=== PATIENT | female | born 1990 | race Caucasian/White ===

== ENCOUNTER → 2023-03-27 15:51 | Outpatient (BNVA) | payer BC, SELFPAY | PROVIDERS: Visit Provider Psychiatry & Neurology Psychiatry | DX: F11.21 Opioid dependence, in remission (principal); Z79.899 Other long term (current) drug therapy | CPT/HCPCS: 80307 ==

== ENCOUNTER → 2023-05-17 13:52 | Outpatient (BNVA) | payer BC, SELFPAY | PROVIDERS: Visit Provider Psychiatry & Neurology Psychiatry | DX: Z79.899 Other long term (current) drug therapy (principal); F11.21 Opioid dependence, in remission; F15.21 Other stimulant dependence, in remission | CPT/HCPCS: 80307 ==

== ENCOUNTER 2023-05-31 10:07 | Emergency (ER) | payer BC, MEDICAID, SELFPAY ==
[2023-05-31 10:27] VITALS: BP 103/61; PULSE 106; RESP 19; TEMP 37.7; O2SAT 96
--- NOTE | 2023-05-31 12:03 | XR_ITS ---
WS: [id number] Exam: XR chest 1V portable [id number] Date/Time of Exam: 05/31/2023 12:03 PM Reason For Exam: dyspnea/cough Comparison 10/02/2019. There is consolidating pneumonia in the right lower lobe. The left lung is clear. No pneumothorax or pleural effusion. Normal cardiomediastinal silhouette and regional bony elements. XR/XR chest 1V portable [id number] IMPRESSION: 1. Consolidating pneumonia in the right lower lobe.
[2023-05-31 12:20] VITALS: BP 109/76; PULSE 115; RESP 18; O2SAT 95
--- NOTE | 2023-05-31 12:36 | W.ED.SOB ---
HPI - SOB/Dyspnea General: Chief Complaint: Shortness of Breath/Dyspnea Stated Complaint: fever, Pain when breathing, cough, congestion Time Seen by Provider: 05/31/23 11:47 Source: patient Mode of arrival: ambulatory History of Present Illness: HPI Narrative: 33-year-old female presents emergency room with complaint of cough and shortness of breath she was seen several days ago in the walk-in clinic started on Zithromax prednisone taper and albuterol. Despite this she feels like she is continue to get worse she is shortness of breath with activity and increasing productive cough she usually does smoke. No vomiting no diarrhea. She has pain with inspiration on the right side with radiation of pain up into her right shoulder. MD elicited complaint: shortness of breath, cough and pain with inspiration Onset (ago): day(s) Context: recent illness Timing: intermittent Severity: moderate Exacerbating factors: coughing and inspiration Associated symptoms: Reports chest congestion, chest pain, cough, fever(s) and nausea; Deny abdominal pain, palpitations or vomiting Treatment prior to arrival: bronchodilator Review of Systems Const: Reports: fever(s); Denies: chills Card: Reports: chest pain; Denies: palpitations or irregular heart rhythm Resp: Reports: dyspnea, productive cough, wheezing and chest congestion GI: Reports: nausea; Denies: abdominal pain or vomiting : Denies: flank pain, difficulty voiding, dysuria, urinary frequency or urinary urgency Skin/Breast: Denies: rash or pruritus [facility] ED PFSH: Medical History Psychiatric care Physical Exam Const: COMMON NORMALS: no acute distress GENERAL APPEARANCE: cooperative and comfortable ORIENTATION/CONSCIOUSNESS: Yes awake, Yes oriented to person, Yes oriented to place and Yes oriented to time HENMT: COMMON NORMALS: normocephalic, atraumatic and hearing grossly normal bilaterally HEAD & SCALP: normocephalic and atraumatic Cardio: COMMON NORMALS: regular rate, regular rhythm and No murmurs present (Cardio) RATE: regular rate RHYTHM: regular rhythm GI: COMMON NORMALS: Soft to palpation and No hepatosplenomegaly present AUSCULTATION: Yes normoactive bowel sounds PALPATION: Yes Soft to palpation, No Tenderness to palpation present (GI), No Guarding due to palpation present (GI) and Yes No hepatosplenomegaly present Extremity: COMMON NORMALS: normal to inspection, capillary refill normal, no clubbing, cyanosis or edema, no calf tenderness and no pedal edema Neuro: SENSORIUM/ORIENTATION: Yes oriented to person, Yes oriented to place and Yes oriented to time Skin: COMMON NORMALS: no rashes or lesions noted GENERAL SKIN EXAM: no rashes or lesions noted Course Vital Signs: Vital signs: Vital Signs Temperature 99.8 F H 05/31/23 10:27 Pulse Rate 115 H 05/31/23 12:20 Respiratory Rate 18 05/31/23 12:20 Blood Pressure 109/76 05/31/23 12:20 Pulse Oximetry 95 05/31/23 12:20 Oxygen Delivery Me thod Room Air 05/31/23 12:20 MDM - SOB/Dyspnea Medical Decision Making Right lower lobe pneumonia with referred pain to the shoulder. Started on Levaquin. Continue prednisone taper and albuterol DC the azithromycin. Encourage smoking cessation follow-up if not improving or worsens Medical Records I reviewed the patient's medical records. Lab Data I reviewed the patient's lab results. 05/31/23 12:20 Labs/Radiology: Radiology Impressions Chest X-Ray 05/31/23 12:03 IMPRESSION: 1. Consolidating pneumonia in the right lower lobe. Laboratory Results WBC 13.8 10^3/uL (4.0-10.0) H 05/31/23 12:20 RBC 3.17 10^6/uL (4.1-5.3) L 05/31/23 12:20 Hgb 9.3 g/dL (11.5-15.3) L 05/31/23 12:20 Hct 28.7 % (37.0-47.0) L 05/31/23 12:20 MCV 90.5 fl (81-99) 05/31/23 12:20 MCH 29.3 pg (28.0-34.0) 05/31/23 12:20 MCHC 32.4 g/dL (30.0-36.0) 05/31/23 12:20 RDW 12.7 % (12.1-15.1) 05/31/23 12:20 Plt Count 412 10^3/cmm (130-400) H 05/31/23 12:20 MPV 9.6 fL (7.4-10.4) 05/31/23 12:20 Neut % (Auto) 67.9 % 05/31/23 12:20 Lymph % (Auto) 21.7 % 05/31/23 12:20 [place] % (Auto) 9.4 % 05/31/23 12:20 Eos % (Auto) 0.3 % 05/31/23 12:20 Baso % (Auto) 0.3 % 05/31/23 12:20 Neut # (Auto) 9.36 10^3/uL (1.8-7.7) H 05/31/23 12:20 Lymph # (Auto) 3.0 10^3/uL (0.8-4.8) 05/31/23 12:20 [place] # (Auto) 1.3 10^3/uL (0.2-0.9) H 05/31/23 12:20 Eos # (Auto) 0.0 10^3/uL (0.0-0.8) 05/31/23 12:20 Baso # (Auto) 0.0 10^3/uL (0.0-0.1) 05/31/23 12:20 Nucleated RBC % (auto) 0 % 05/31/23 12:20 Nucleated RBCs # 0.0 /100WBC 05/31/23 12:20 Discharge Plan Discharge Patient Disposition: Home Clinical Impression: Community acquired pneumonia Condition: Stable Prescriptions: New levofloxacin 750 mg tablet 750 mg PO DAILY 7 Days Qty: 7 0RF No Action trazodone 50 mg tablet 100 mg PO .HS PRN (Reason: insomnia) Qty: 60 2RF buprenorphine-naloxone 2-0.5 mg tablet, sublingual 1 tab sublingual TID Qty: 90 1RF azithromycin 250 mg tablet See Rx Instructions PO .COMPLEX Qty: 6 0RF Rx Instructions: For 250 mg dose pack: take 500 mg today (day 1), then 250 mg for 4 days (days 2-5) PO albuterol sulfate [Ventolin HFA] 90 mcg/actuation HFA aerosol inhaler 2 puff inhalation QID Qty: 6.7 0RF prednisone 20 mg tablet 40 mg PO DAILY 5 Days Qty: 10 0RF Discharge Orders: Discharge ED (Routine); Ordered 05/31/23 Ordered By: Barrera L Horstman Discharge Diet: Usual diet Discharge Activity: Increase activity as tolerated Patient Instructions: Opioid Safety, Pain Management Activity Restrictions/Additional Instructions: You are seen today for pneumonia recommend that you stop the Zithromax and instead start Levaquin 750 mg once daily for the next 7 days. Continue to use the albuterol and complete the prednisone taper that you were prescribed. Coding Level of Care Code ED Fitting Room Maintenance Mechanic for Sandee Boo
[2023-05-31 12:42] LABS: Basophils % 0.3 %; Eosinophils % 0.3 %; Hematocrit 28.7 % (37.0-47.0); Hemoglobin 9.3 g/dL (11.5-15.3); Lymphocytes % 21.7 %; Mean Corpuscular HGB Conc 32.4 g/dL (30.0-36.0); Mean Corpuscular Hemoglobin 29.3 pg (28.0-34.0); Mean Corpuscular Volume 90.5 fl (81-99); Mean Platelet Volume 9.6 fL (7.4-10.4); Monocytes # 1.3 10^3/uL (0.2-0.9); Monocytes % 9.4 %; Neutrophils # 9.36 10^3/uL (1.8-7.7); Neutrophils % 67.9 %; Nucleated Red Blood Cells % 0 %; Platelet Count 412 10^3/cmm (130-400); Red Blood Count 3.17 10^6/uL (4.1-5.3); Red Cell Distribution Width 12.7 % (12.1-15.1); White Blood Count 13.8 10^3/uL (4.0-10.0)
--- NOTE | 2023-06-06 11:42 | DCPLANNER ---
technical training manager called patient due to no primary care physician - no answer at this time.
== END 2023-05-31 12:51 | disposition home or self-care (01) ==
PROVIDERS: Emergency Provider Family Medicine
DX: J18.9 Pneumonia, unspecified organism (principal)
CPT/HCPCS: 36415; 71045; 85025; 99284

== ENCOUNTER → 2023-07-24 09:22 | Outpatient (BNVA) | payer BC, SELFPAY | PROVIDERS: Visit Provider Psychiatry & Neurology Psychiatry | DX: Z79.899 Other long term (current) drug therapy (principal); F11.21 Opioid dependence, in remission; F15.21 Other stimulant dependence, in remission | CPT/HCPCS: 80307 ==

== ENCOUNTER → 2023-10-17 14:05 | Outpatient (BNVA) | payer BC, SELFPAY | PROVIDERS: Visit Provider Psychiatry & Neurology Psychiatry | DX: Z79.899 Other long term (current) drug therapy (principal); F11.21 Opioid dependence, in remission; F15.21 Other stimulant dependence, in remission; F17.210 Nicotine dependence, cigarettes, uncomplicated; F41.1 Generalized anxiety disorder | CPT/HCPCS: 80307 ==

== ENCOUNTER → 2024-01-08 12:55 | Outpatient (BNVA) | payer BC, SELFPAY | PROVIDERS: Visit Provider Psychiatry & Neurology Psychiatry | DX: F11.21 Opioid dependence, in remission (principal); Z79.899 Other long term (current) drug therapy; F41.1 Generalized anxiety disorder; F15.21 Other stimulant dependence, in remission; F17.210 Nicotine dependence, cigarettes, uncomplicated | CPT/HCPCS: 80307 ==

== ENCOUNTER → 2024-03-25 15:12 | Outpatient (BNVA) | payer BC, SELFPAY | PROVIDERS: Visit Provider Psychiatry & Neurology Psychiatry | DX: F15.21 Other stimulant dependence, in remission (principal); F11.21 Opioid dependence, in remission; Z79.899 Other long term (current) drug therapy; F41.1 Generalized anxiety disorder; F17.210 Nicotine dependence, cigarettes, uncomplicated | CPT/HCPCS: 80307 ==

== ENCOUNTER 2024-04-20 09:28 | Emergency (ER) | payer BC, MEDICAID, SELFPAY ==
[2024-04-20 09:35] VITALS: BP 128/81; PULSE 92; RESP 18; TEMP 36.8; O2SAT 96; BMI 27.3
[2024-04-20 09:42] VITALS: BP 128/81
--- NOTE | 2024-04-20 09:45 | W.ED.DENTAL ---
HPI - Dental/Oral General: Chief complaint: Dental/Oral Stated complaint: tooth pain Time Seen by Provider: 04/20/24 09:33 History of Present Illness: This patient is a 34-year-old presenting with facial swelling and dental pain. She started having some dental pain last night and this morning it woke her up early with increased pain and some swelling. She has 2 teeth on the left lower jaw which she says are bad . She does not have a dentist. She has not taken ibuprofen or Tylenol at home. She is on buprenorphine for history of substance abuse. She denies fevers. She is not having any difficulty swallowing. She has never had a dental abscess in the past. PFS ED PFSH: Medical History Psychiatric care Physical Exam Const: COMMON NORMALS: patient oriented x3 GENERAL APPEARANCE: other (Uncomfortable) HENMT: MOUTH: other (No elevation of the floor of the mouth no submandibular fullness) TEETH & GINGIVA: Yes abnormal tooth and associated gingiva (Left lower molars with deep cavities and some swelling of the gum. No fluc) TEETH & GINGIVA IMAGES: 1. Deep dental caries 2. Deep dental caries Resp: COMMON NORMALS: normal respiratory effort and No use of accessory muscles Cardio: HEART SOUNDS: no murmurs Neuro: COMMON NORMALS: patient oriented x3 Course Vital Signs: Vital signs: Vital Signs Temperature 98.3 F 04/20/24 09:35 Pulse Rate 92 04/20/24 09:35 Respiratory Rate 18 04/20/24 09:35 Blood Pressure 128/81 04/20/24 09:42 Pulse Oximetry 96 04/20/24 09:35 Oxygen Delivery Me thod Room Air 04/20/24 09:35 MDM - Dental/Oral Medical Decision Making Apparent dental abscess. No area of fluctuance that would be amenable to drainage. Patient does have history of substance abuse including opiates. We discussed this in some detail and she is okay with taking a short course of narcotic pain medicine if needed. I gave her 1 [facility] here and a prescription for 4 tablets. She was also given ibuprofen here and a prescription for Naprosyn. She will be put on amoxicillin 875 twice daily for 7 days. She was given some options for follow-up for dental care. No radiology studies performed this visit Discharge Plan Discharge Patient Disposition: Home Clinical Impression: Dental abscess, Toothache Condition: Stable Prescriptions: New Naprosyn 500 mg tablet 500 mg PO BID PRN (Reason: pain) Qty: 10 0RF amoxicillin 875 mg tablet 875 mg PO BID Qty: 14 0RF hydrocodone-acetaminophen 5-325 mg tablet 1 tab PO Q6H PRN (Reason: pain) Qty: 4 0RF No Action buprenorphine-naloxone 8-2 mg tablet, sublingual 1.5 tab sublingual DAILY Qty: 45 2RF trazodone 50 mg tablet 100 mg PO .HS PRN (Reason: insomnia) Qty: 60 2RF Discharge Orders: Discharge ED (Routine); Ordered 04/20/24 Ordered By: Lizette Ratliff Patient Instructions: Opioid Safety, Pain Management Activity Restrictions/Additional Instructions: Follow up with the [facility] for dental care. You can also follow up with the [facility] dental clinic in [place]. 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
[2024-04-20] MEDS: ibuprofen 600 mg Tablet PO (09:51)
[2024-04-20] MEDS: HYDROcodone-acetaminophen 5-325 mg Tablet 1 TAB PO (09:52)
[2024-04-20] MEDS: acetaminophen 325 mg Tablet 650 MG PO (09:52)
== END 2024-04-20 10:03 | disposition home or self-care (01) ==
PROVIDERS: Emergency Provider Emergency Medicine
DX: K04.7 Periapical abscess without sinus (principal)
CPT/HCPCS: 99283

== ENCOUNTER → 2024-06-25 15:26 | Outpatient (BNVA) | payer BC, SELFPAY | PROVIDERS: Visit Provider Psychiatry & Neurology Psychiatry | DX: Z79.899 Other long term (current) drug therapy (principal); F15.21 Other stimulant dependence, in remission; F11.21 Opioid dependence, in remission | CPT/HCPCS: 80307 ==

== ENCOUNTER → 2024-09-24 15:23 | Outpatient (BNVA) | payer BC, SELFPAY | PROVIDERS: Visit Provider Psychiatry & Neurology Psychiatry | DX: F15.21 Other stimulant dependence, in remission (principal); F11.21 Opioid dependence, in remission; Z79.899 Other long term (current) drug therapy | CPT/HCPCS: 80307 ==

== ENCOUNTER → 2024-12-18 15:22 | Outpatient (BNVA) | payer BC, SELFPAY | PROVIDERS: Visit Provider Psychiatry & Neurology Psychiatry | DX: F15.21 Other stimulant dependence, in remission (principal); F11.21 Opioid dependence, in remission; Z79.899 Other long term (current) drug therapy | CPT/HCPCS: 80307 ==

== ENCOUNTER → 2025-03-26 14:59 | Outpatient (BNVA) | payer BC, SELFPAY | PROVIDERS: Visit Provider Psychiatry & Neurology Psychiatry | DX: F41.1 Generalized anxiety disorder (principal); F15.21 Other stimulant dependence, in remission; F11.21 Opioid dependence, in remission; Z79.899 Other long term (current) drug therapy; F17.210 Nicotine dependence, cigarettes, uncomplicated | CPT/HCPCS: 80307 ==

== ENCOUNTER 2025-05-05 20:00 | Emergency (ER) | payer BC, MEDICAID, SELFPAY ==
--- OUTSIDE RECORDS SUMMARY | 2021-11-16 10:22 | XMS_ITS | Continuity of Care Document ---
Author Organization [facility] Address [address] [id number] [address] Phone Care Team Providers Care Cephalometric Analyst Name Role Phone Marta Odell MD Unavailable Unavailable Allergies, Adverse Reactions, Alerts Substance Reaction Status Criticality No Known Allergies Active No Inform ation Medications Medication Instructions Dosage Effective Dates (start - stop) Status Comments triamcinolone acetonide 0.05 % topical ointment apply by topical route 2 times every day a thin layer to the affected area(s) 0.00 - Active 28 mg iron-800 mcg tablet take 1 tablet by oral route every daily for 60 mornings 1 tablet - Active As per patient privacy policy some of the clinical information may not be visible. Problems Condition Type Effective Dates (start - stop) Clini simone Status Comments No Known Problems Procedures Procedure Date PSYTX PT&/FAMILY 30 MINUTES OFFICE/OUTPATIENT VISIT, EST DRUG SCREEN URINALYSIS AUTO W/O SCOPE Patient Left / No Show DRUG SCREEN OFFICE/OUTPATIENT VISIT, EST DRUG SCREEN PSYTX PT&/FAMILY 30 MINUTES OB US < 14 WKS SINGLE FETUS - Global May PSYTX PT&/FAMILY 30 MINUTES CYTOPATH, C/V, THIN LAYER OFFICE/OUTPATIENT VISIT, EST URINALYSIS AUTO W/O SCOPE DRUG SCREEN HEPATITIS C AB TEST No Charge Lab Codes OBSTETRIC PANEL No Charge Lab Codes No Charge Lab Codes No Charge Lab Codes No Charge Lab Codes ROUTINE VENIPUNCTURE No Charge Lab Codes CULT, (U) ROUTINE *SURESWAB CT/NG/TVAG THINPREP TIS PAP AND HPV mRNA E6/E7 REFL EX HPV 16,18/45 HPV GENOTYPES 16,18/45 NO CHARGE PSYTX PT&/FAMILY 30 MINUTES URINE TEST OFFICE/OUTPATIENT VISIT EST OFFICE/OUTPATIENT VISIT EST Finalize Template Workaround OFFICE/OUTPATIENT VISIT, EST (1371) Finalize Template Workaround OFFICE/OUTPATIENT VISIT, EST (1371) Finalize Template Workaround OFFICE/OUTPATIENT VISIT, EST (1371) COMPLETE CBC W/AUTO DIFF WBC COMPREHEN METABOLIC PANEL ROUTINE VENIPUNCTURE CYTOPATH, C/V, THIN LAYER Patient Left / No Show Finalize Template Workaround Patient Left / No Show Finalize Template Workaround Behavioral Health Consult OFFICE/OUTPATIENT VISIT, EST Nurse Care Manger Patient Education Phon e Finalize Template Workaround OFFICE/OUTPATIENT VISIT, EST (1371) OB US LIMITED FETUS(S) - Global 018 NON-STRESS TEST OFFICE/OUTPATIENT VISIT, EST URINALYSIS AUTO W/O SCOPE OB US LIMITED FETUS(S) - Global 018 OFFICE/OUTPATIENT VISIT, EST NON-STRESS TEST URINALYSIS AUTO W/O SCOPE OB US LIMITED FETUS(S) - Global 018 OFFICE/OUTPATIENT VISIT, EST NON-STRESS TEST URINALYSIS AUTO W/O SCOPE URINALYSIS AUTO W/O SCOPE Drug Tests Presumptive Any Number Of Malcom g Classes NON-STRESS TEST OB US FOLLOW-UP PER FETUS - Global OFFICE/OUTPATIENT VISIT, EST STREP GP B CULTURE PSYTX PT&/FAMILY 30 MINUTES URINALYSIS AUTO W/O SCOPE OB US, LIMITED, FETUS(S) NON-STRESS TEST OB US LIMITED FETUS(S) NON-STRESS TEST OFFICE/OUTPATIENT VISIT, EST OB US, LIMITED, FETUS(S) URINALYSIS AUTO W/O SCOPE URINALYSIS AUTO W/O SCOPE OB US LIMITED FETUS(S) - Global 017 NON-STRESS TEST OFFICE/OUTPATIENT VISIT, EST (1371) URINALYSIS AUTO W/O SCOPE NON-STRESS TEST OFFICE/OUTPATIENT VISIT, EST OB US FOLLOW-UP PER FETUS - Global OFFICE/OUTPATIENT VISIT, EST URINALYSIS AUTO W/O SCOPE OFFICE/OUTPATIENT VISIT, EST Duplicate Encounter GLUCOSE TEST COMPLETE CBC W/AUTO DIFF WBC ROUTINE VENIPUNCTURE Behavioral Health Consult URINALYSIS AUTO W/O SCOPE Drug Tests Presumptive Any Number Of Malcom g Classes IMMUNIZATION ADMIN TDAP VACCINE >7 IM IMMUNIZATION ADMIN, EACH ADD FLU VAC NO PRSV 4 JOSE LUIS 3 YRS+ Patient Left / No Show OB US >/= 14 WKS SNGL FETUS OB US >/= 14 WKS, SNGL FETUS PSYTX PT&/FAMILY 30 MINUTES CHYLMD TRACH DNA AMP PROBE N.GONORRHOEAE DNA AMP PROB OFFICE/OUTPATIENT VISIT, EST URINALYSIS AUTO W/O SCOPE Drug Tests Presumptive Any Number Of Malcom g Classes OFFICE/OUTPATIENT VISIT, EST (1371) PSYTX PT&/FAMILY 30 MINUTES OFFICE/OUTPATIENT VISIT, EST (1371) Resin-Based Composite One Surface, Posterior Resin-Based Composite One Surface, Posterior EDR Approval Note Treatment Plan Complete Comprehensive Oral Evaluatio n New Or Established Bitewings Four Films Intraoral Periapical First Film Intraoral Periapical Each Additional Film Intraoral Periapical Each Additional Film Intraoral Periapical Each Additional Film Panoramic Film EDR Approval Note OFFICE/OUTPATIENT VISIT, EST (1371) PSYTX PT&/FAMILY 45 MINUTES OFFICE/OUTPATIENT VISIT, EST (1371) OFFICE/OUTPATIENT VISIT, EST URINALYSIS AUTO W/O SCOPE Drug Tests Presumptive Any Number Of Malcom g Classes PSYTX PT&/FAMILY 45 MINUTES OB US < 14 WKS SINGLE FETUS - Global May CYTOPATH, C/V, THIN LAYER OFFICE/OUTPATIENT VISIT, NEW CHYLMD TRACH DNA AMP PROBE N.GONORRHOEAE DNA AMP PROB PAP With Rfx HPV ASC-U Drug Tests Presumptive Any Number Of Malcom g Classes URINE CULTURE, ROUTINE CPT 02629 2016 ABO GROUP & RHO(D) TYP (PP $10.25)CPTs 8 [id number],96023 ANTIBODY SCREEN COMPLETE CBC W/AUTO DIFF WBC HEPATITIS B SURFACE AG EIA HEPATITIS C AB TEST HIV ANTIGEN W/HIV ANTIBODIES RPR, RFX QN RPR/CONFIRM TP-PA 7 RUBELLA ANTIBODY ROUTINE VENIPUNCTURE NO CHARGE URINE TEST NO CHARGE URINE TEST $15 (in-house) Office/Outpatient Visit, Est URINE TEST INJ MDRXYPRGESTRON CNTRACPT 150 MG EST-EXP PROB FOC/LOW COMPLEXITY 008 INJ MDRXYPRGESTRON CNTRACPT 150 MG EST-EXP PROB FOC/LOW COMPLEXITY 008 COMPREHEN METABOLIC PANEL EST-EXP PROB FOC/LOW COMPLEXITY 008 COMPLETE CBC W/AUTO DIFF WBC NEW-COMPR/MOD COMPLEXITY URINALYSIS NONAUTO W/O SCOPE INJ MDRXYPRGESTRON CNTRACPT 150 MG URINE TEST Advance Directives Directive Yes / No Effective Date File Name No Information Encounters Encounter Description Practice Location Reason(s) For Visit Diagnoses Date Provider Providers Copied on Encounter [facility], [address] [id number]- [place], [address], [place] tel:[phone] Pediatrics F1 No Information 2 Jose R Lozano. [address], [place], [address], [place]. tel:[phone] PSYTX PT&/FAMILY 30 MINUTES [facility], [address] Wjala[address]U9 1517504LX- [facility], [place], [address], [place] tel:[phone] Behavior[facility] 1 Cony Cates. [address], [place], [address], [place]. tel:[phone] Referring Provider: Loan Donnelly, [address] [place], [address] . tel:[phone] OFFICE/OUTPA TIENT VISIT, [facility], [address] [id number] 2103667SW[place], [place], [address], [place] tel:[phone] [place] [address] routine (chief complaint) Supervision of other high risk pregnancies, second trimesterDrug use complicating , second trimesterHist ory of sectionSuperv ision of high risk , unsp, second trimester 1 Jose R Lozano. [address], [place], [address], [place]. tel:[phone] Referring Provider: Marta Odell, [address] [place], [address] . tel:[phone] [facility], [address] Wwtoo079F5 9491450CY[place], [address], [place] tel:[phone] [place] [address] Supervision of high risk , unsp, second trimesterDrug use complicating , second trimester 1 Yareli Burnett. [address] [place], [address], [place]. tel:[phone] Referring Provider: Hortencia Downs, [address] [place], [address]. tel:[phone] OFFICE/OUTPA TIENT VISIT, [facility], [address] Ljnkf118A6 3799927YX- [place], [address], [place] tel:[phone] [place] [address] routine (chief complaint) Supervision of other high risk pregnancies, second trimesterDrug use complicating , unspecified trimesterHist ory of sectionSuperv ision of high risk , unsp, second trimester 1 Jose R Lozano. [address], [place], [address], [place]. tel:[phone] Referring Provider: Marta Odell, [address] [place], [address] . tel:[phone] PSYTX PT&/FAMILY 30 MINUTES [facility], [address] Vmbku[address] 6445[place]MH[place], [place], [address], [place] tel:[phone] Behavior[facility] Integration 1 Cony Cates. [address], [place], [address], [place]. tel:[phone] Referring Provider: Loan Donnelly, [address] [place], [address] . tel:[phone] [facility], [address] Tubrt689P5 4860284AKLith[place], [place], [address], [place] tel:[phone] [place] [address] Supervision of other high risk pregnancies, second trimesterUter ine size-date discrepancy, first trimester 1 Jose R Lozano. [address], [place], [address], [place]. tel:[phone] Referring Provider: Marta Odell, [address] [place], [address] . tel:[phone] PSYTX PT&/FAMILY 30 MINUTES [facility], [address] Afghd903D5 6546350DQLith[place], [place], [address], [place] tel:[phone] [facility] 1 Cony Cates. [address], [place], [address], [place]. tel:[phone] Referring Provider: Loan Donnelly, [address] [place], [address] . tel:[phone] OFFICE/OUTPA TIENT VISIT, EST [facility], [address] Cporo506D9 1883147UF- [place], [address], [place] tel:[phone] [place] [address] routine (chief complaint) History of sectionSuperv ision of other high risk pregnancies, second trimesterEncn tr for forest pathology professor exam (general) (routine) w/o abn findingsDrug use complicating , unspecified trimesterSupe rvision of other high risk pregnancies, first trimester 1 Jose R Lozano. [address], [place], [address], [place]. tel:[phone] Referring Provider: Marta Odell, [address] [place], [address] . tel:[phone] [facility], [address] Ktsqn110C9 1448607LNLith[place], [place], [address], [place] tel:[phone] [place] [address] No Information 1 Jose R Lozano. [address], [place], [address], [place]. tel:[phone] Referring Provider: Marta Odell, [address] [place], [address] . tel:[phone] PSYTX PT&/FAMILY 30 MINUTES [facility], [address] Yluiy699J3 6278305UXLith[place], [place], [address], [place] tel:[phone] [facility] 1 Cony Cates. [address], [place], [address], [place]. tel:[phone] Referring Provider: Loan Donnelly, [address] [place], [address] . tel:[phone] OFFICE/OUTPA TIENT VISIT EST [facility], [address] Kewws139H8 6866708RQ- [place], [address], [place] tel:[phone] Family Medicine F1 MT TREVON (chief complaint) AmenorrheaPre gnancy, unspecified gestational age 1 Simone Morillo. [address], [place], [address], [place]. tel:[phone] Referring Provider: Yisel Doss, [address] [place], [address] . tel:[phone] [facility], [address] Dwdjs177E4 8076932GILithia, [place], [address], [place] tel:[phone] [facility] Encounter for screening 1 No Information OFFICE/OUTPA TIENT VISIT EST [facility], [address] Zncye884Q5 6233527TTLithia, [place], [address], [place] tel:[phone] Family Medicine F1 MT - TREVON / New (chief complaint)R tom (chief complaint) Psoriasis 1 Simone Morillo. [address], [place], [address], [place]. tel:[phone] Referring Provider: Yisel Doss, [address] [place], [address] . tel:[phone] [facility], [address] Sarwj807D8 5412274JA- [place], [address], [place] tel:[phone] [facility] SUB (chief complaint) 9 No Information [facility], [address]qeeq759M3 4829302FMPrince, [place], [address], [place] tel:[phone] [facility] SUB (chief complaint) 8 No Information [facility], [address] Gtlyp252R3 7276870SM- [place], [address], [place] tel:[phone] [facility] sub abuse (chief complaint) rn long term care (current) use of opiate analgesic 8 No Information [facility], [address] Qvlkw628E1 1649191GHPrince, [place], [address], [place] tel:[phone] [facility] F1 check (chief complaint) Encounter for routine follow-up 8 Jose R Lozano. [address], [place], [address], [place]. tel:[phone] Referring Provider: Marta Odell, [address] [place], [address] . tel:[phone] [facility], [address] Wczij169K1 5714065QWLithia, [place], [address], [place] tel:[phone] [facility] Encounter for screening 8 No Information OFFICE/OUTPA TIENT VISIT, EST [facility], [address] Aqnpx281S1 3412181DCLithia, [place], [address], [place] tel:[phone] [facility] Follow Up of substance abuse (chief complaint) 8 No Information [facility], [address] Ymoxa297O6 9396629JHLithia, [place], [address], [place] tel:[phone] Family Medicine F1 No Information 8 Monkey Keeper. [address], [place], [address], [place]. tel:[phone] [facility], [address] Aymbj021Y2 9334550FZPrince, [place], [address], [place] tel:[phone] [facility] Follow Up of OB substance abuse (chief complaint) 8 No Information OFFICE/OUTPA TIENT VISIT, [facility], [address] Ayymn744V1 7331925UIPrince, [place], [address], [place] tel:[phone] [place] [address] routine (chief complaint) Supervision of other high risk pregnancies, third trimesterMate rnal care for (suspected) damage to fetus by drugs, unspSmoking (tobacco) complicating , unsp trimester 8 Jose R Lozano. [address], [place], [address], [place]. tel:[phone] Referring Provider: [place], [address] . tel:[phone] [facility], [address] Xvkkt998W1 9214854CXLithia, [place], [address], [place] tel:[phone] [facility] Medicine Supervision of other high risk pregnancies, third trimester 8 Jose R Lozano. [address], [place], [address], [place]. tel:[phone] Referring Provider: [place], [address] . tel:[phone] OFFICE/OUTPA TIENT VISIT, [facility], [address] Vlmts679W0 0779472AALithia, [place], [address], [place] tel:[phone] [place] [address] routine (chief complaint) Supervision of other high risk pregnancies, third trimesterSmok ing (tobacco) complicating , unsp trimesterMate rnal care for other malpresentati on of fetus, fetus 1Maternal care for (suspected) damage to fetus by drugs, unsp 8 Jose R Lozano. [address], [place], [address], [place]. tel:[phone] Referring Provider: [place], [address] . tel:[phone] [facility], [address] Ietxi208X2 5251255BM- [place], [address], [place] tel:[phone] Family Medicine F1 Supervision of other high risk pregnancies, third trimester 8 Jose R Lozano. [address], [place], [address], [place]. tel:[phone] Referring Provider: Marta Odell, [address] [place], [address] . tel:[phone] OFFICE/OUTPA TIENT VISIT, [facility], [address] Qccpd222S1 8752993EZLithia, [place], [address], [place] tel:[phone] [facility] F1 routine (chief complaint) Maternal care for (suspected) damage to fetus by drugs, unspSupervisi on of other high risk pregnancies, third trimester 0 8 No Information Referring Provider: Marta Odell, [address] [place], [address] . tel:[phone] [facility], [address] Ezwev965W9 9285992VYLithia, [place], [address], [place] tel:[phone] Family Medicine F1 Supervision of other high risk pregnancies, third trimester 0 8 No Information Referring Provider: Marta Odell, [address] [place], [address] . tel:[phone] [facility], [address] Jjuef286S0 3771395TTLithia, [place], [address], [place] tel:[phone] Family Medicine F1 Supervision of other high risk pregnancies, third trimester 3 8 Jose R Lozano. [address], [place], [address], [place]. tel:[phone] Referring Provider: Marta Odell, [address] [place], [address] . tel:[phone] OFFICE/OUTPA TIENT VISIT, EST [facility], [address] Gtrcu251M0 0895419AE- [facility], [place], [place], [address], [place] tel:[phone] [facility] F1 routine (chief complaint) Supervision of other high risk pregnancies, third trimesterSmok ing (tobacco) complicating , unsp trimesterDrug use complicating , unspecified trimesterMate rnal care for (suspected) damage to fetus by drugs, unsp 8 Jose R Lozano. [address], [place], [address], [place]. tel:[phone] Referring Provider: Marta Odell, [address] [place] [facility] [place], [address] . tel:[phone] [facility], [address] Ckhty710C1 3365013WYLithia, [place], [address], [place] tel:[phone] Family Medicine F1 Supervision of high risk , unsp, unsp trimester 8 Jose R Lozano. [address], [place], [address], [place]. tel:[phone] Referring Provider: Marta Odell, [address] [place] [facility] [place], [address] . tel:[phone] PSYTX PT&/FAMILY 30 MINUTES [facility], [address] Otegf737Y3 5891312EJPrince, [place], [address], [place] tel:[phone] [facility] 8 No Information [facility], [address] Ehfcx190E2 3734349EBPrince, [place], [address], [place] tel:[phone] Family Medicine F1 Supervision of high risk , unsp, uns trimester Jose R Lozano. [address], [place], [address], [place]. tel:[phone] Referring Provider: Marta Odell, [address] [place], [address] . tel:[phone] [facility], [address] Smgyz857M4 2546384UHLithia, [place], [address], [place] tel:[phone] [place] [address] Supervision of other high risk pregnancies, third trimesterMate rnal care for (suspected) damage to fetus by drugs, [facility] Jose R Lozano. [address], [place], [address], [place]. tel:[phone] Referring Provider: Marta Odell, [address] [place], [address] . tel:[phone] [facility], [address] Spswt454P1 0927980EQLithia, [place], [address], [place] tel:[phone] [place] [address] Maternal care for (suspected) damage to fetus by drugs, [facility] 7 Yadiel Cao. [address], [place], [address], [place]. tel:[phone] OFFICE/OUTPA TIENT VISIT, [facility], [address] Gkpyj503H4 0186951WJLithia, [place], [address], [place] tel:[phone] [place] [address] routine (chief complaint) Supervision of other high risk pregnancies, third trimesterSmok ing (tobacco) complicating , unsp trimesterDrug use complicating , unspecified trimesterMate rnal care for (suspected) damage to fetus by drugs, [facility] 7 Jose R Lozano. [address], [place], [address], [place]. tel:[phone] Referring Provider: Marta Odell, [address] [place], [address] . tel:[phone] [facility], [address] Nbluo639Y7 1021667BF- [place], [address], [place] tel:[phone] Family Medicine Supervision of high risk , unsp, unsp trimester Dec- 0201 7 Jose R Lozano. [address], [place], [address], [place]. tel:[phone] Referring Provider: Marta Odell, [address] [place], [address] . tel:[phone] [facility], [address] Xvtfk821F4 2260821YEPrince, [place], [address], [place] tel:[phone] Family Medicine Supervision of high risk , unsp, unsp trimester Oct- 7 Jose R Lozano. [address], [place], [address], [place]. tel:[phone] Referring Provider: Marta Odell, [address] [place], [address] . tel:[phone] [facility], [address] Dlldo314E9 2703232TLPrince, [place], [address], [place] tel:[phone] [facility] Health Supervision of other high risk pregnancies, third trimesterMate rnal care for (suspected) damage to fetus by drugs, unspSupervisi on of high risk , unsp, unsp trimester Oct-201 7 Yadiel Cao. [address], [place], [address], [place]. tel:[phone] Referring Provider: Marta Odell, [address] [place], [address] . tel:[phone] [facility], [address] Xvfyd245U1 1271738MQPrince, [place], [address], [place] tel:[phone] [facility] Follow Up of OB substance abuse (chief complaint) Oct- 7 No Information [facility], [address] Yclqq175F5 8874471XUPrince, [place], [address], [place] tel:[phone] Family Medicine Supervision of high risk , unsp, unsp trimester Oct- 7 Jose R Lozano. [address], [place], [address], [place]. tel:[phone] Referring Provider: Marta Odell, [address] [place], [address] . tel:[phone] OFFICE/OUTPA TIENT VISIT, [facility], [address] Qtbno110R3 9807944UKLithia, [place], [address], [place] tel:[phone] [place] [address] routine (chief complaint) Supervision of other high risk pregnancies, third trimesterSupr vsn of preg w history of ectopic or molar preg, unsp triSmoking (tobacco) complicating , unsp trimesterMate rnal care for (suspected) damage to fetus by drugs, unsp Oct- 7 Yadiel Cao. [address], [place], [address], [place]. tel:[phone] Referring Provider: Nash Hdz, [address] [place], [address] . tel:[phone] OFFICE/OUTPA TIENT VISIT, [facility], [address] Zfoua500P6 3852024VTLithia, [place], [address], [place] tel:[phone] [place] [address] routine (chief complaint) Supervision of high risk , unsp, unsp trimester 7 No Information [facility], [address] Zolum305B4 5230571JY- [facility], [place], [place], [address], [place] tel:[phone] Family Medicine F1 Suprvsn of preg w insufficient antenat care, unsp trimester 7 No Information OFFICE/OUTPA TIENT VISIT, EST [facility], [address] Xprpq489T8 0664624CA- [facility], [place], [place], [address], [place] tel:[phone] [facility] F1 routine (chief complaint) Supervision of high risk , 2nd trimesterSupr vsn of preg w history of ectopic or molar preg, unsp triDrug use complicating , unspecified trimesterSupr vsn of preg w insufficient antenat care, unsp trimester 7 Jose R Lozano. [address], [place], [address], [place]. tel:[phone] [facility], [address] Fpscx117O8 1194422GVLithia, [place], [address], [place] tel:[phone] Family Medicine F1 Encounter for screening for diabetes mellitus Jose R Lozano. [address], [place], [address], [place]. 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 [address], [place], [address], [place]. tel:[phone] Referring Provider: Marta Odell, [address] [place], [address] . tel:[phone] [facility], [address] Dtylj307N4 0094229GT- [place], [address], [place] tel:[phone] [place] [address] No Information 7 Jose R Lozano. [address], [place], [address], [place]. tel:[phone] Referring Provider: Marta Odell, [address] [place], [address] . tel:[phone] [facility], [address] Cgjat281P2 3086667BZ- [place], [address], [place] tel:[phone] [place] [address] Encounter for screening, unspecifiedSu pervision of high risk , unsp, unsp trimesterSmok ing (tobacco) complicating , unsp trimesterDrug use complicating , unspecified trimester 7 Yadiel Cao. [address], [place], [address], [place]. tel:[phone] [facility], [address] Xownm990P2 5371855OS- [place], [address], [place] tel:[phone] [place] [address] Encounter for screening, unspecifiedSu pervision of high risk , unsp, unsp trimesterSmok ing (tobacco) complicating , unsp trimesterDrug use complicating , unspecified trimesterSupr vsn of preg w insufficient antenat care, unsp trimesterSupr vsn of preg w history of ectopic or molar preg, unsp tri 7 Jose R Lozano. [address], [place], [address], [place]. tel:[phone] Referring Provider: Marta Odell, [address] [place], [address] . tel:[phone] PSYTX PT&/FAMILY 30 MINUTES [facility], [address] Ratuh661O8 3603245RT- [facility], [place], [place], [address], [place] tel:[phone] [facility] Encounter for dental exam and cleaning w/o abnormal findingsAdjus tment disorder w mixed disturb of emotions and conduct Kash Cao. [address] [place], [address], [place]. tel:[phone] Referring Provider: Nash Hewitt, [address] [place], [address]. tel:[phone] [facility], [address] Ycazc972T0 4076221IR- [place], [place], [address], [place] tel:[phone] Family Medicine Supervision of high risk , unsp, unsp trimester Jose R Lozano. [address], [place], [address], [place]. tel:[phone] Referring Provider: Marta Odell, [address] [place], [address] . tel:[phone] OFFICE/OUTPA TIENT VISIT, EST [facility], [address] Gqaos539G7 9157405CB- [place], [address], [place] tel:[phone] [facility] F1 routine (chief complaint) Supervision of high risk , 2nd trimesterDrug use complicating , first trimesterAdju stment disorder with mixed anxiety and depressed mood 7 Jose R Lozano. [address], [place], [address], [place]. tel:[phone] Referring Provider: Marta Odell, [address] [place], [place], [address] . tel:[phone] [facility], [id number] [id number], [place], [address], [place] tel:[phone] Family Medicine F1 Supervision of high risk , unsp, unsp trimester Jose R Lozano. [address], [place], [address], [place]. tel:[phone] Referring Provider: Marta Odell, [address] [place], [address] . tel:[phone] [facility], [id number]- [place], [place], [address], [place] tel:[phone] Family Medicine F1 Follow Up of substance abuse (chief complaint) No Information PSYTX PT&/FAMILY 30 MINUTES [facility], [id number], [place], [address], [place] tel:[phone] [facility] Encounter for dental exam and cleaning w/o abnormal findingsAdjus tment disorder w mixed disturb of emotions and conduct Kash Cao. [address] [place], [address], [place]. tel:[phone] Referring Provider: Nash Hewitt, [address] [place], [address]. tel:[phone] [facility], [id number] 1930209AA- [place], [place], [address], [place] tel:[phone] Family Medicine F1 Follow Up of OB substance abuse (chief complaint) No Information [facility], [address] [id number]- [place], [address], [place] tel:[phone] [facility] Encounter for dental exam and cleaning w/o abnormal findings No Information [facility], [address] [id number]- [place], [address], [place] tel:[phone] [facility] Encounter for dental exam and cleaning w/o abnormal findings No Information [facility], [id number] [id number]- [place], [address], [place] tel:[phone] Family Medicine F1 Follow Up of OB substance abuse (chief complaint) No Information PSYTX PT&/FAMILY 45 MINUTES [facility], [address] [id number], [place], [place], [address], [place] tel:[phone] [facility] Adjustment disorder with mixed anxiety and depressed mood Kash Cao. [address] [place], [address], [place]. tel:[phone] Referring Provider: Nash Hewitt, [address] [place], [address]. tel:[phone] [facility], [id number], [place], [address], [place] tel:[phone] Family Medicine F1 MARBLEIZER substance abuse (chief complaint) No Information OFFICE/OUTPA TIENT VISIT, EST [facility], [id number] [id number], [place], [address], [place] tel:[phone] [facility] F1 routine (chief complaint) Supervision of high risk , unsp, unsp trimester No Information [facility], [id number] 1045292CSPr[place], [address], [place] tel:[phone] Family Medicine F1 Supervision of high risk , unsp, unsp trimester No Information [facility], [id number] 3638686IEL[place], [place], [address], [place] tel:[phone] Family Medicine F1 No Information PSYTX PT&/FAMILY 45 MINUTES [facility], [address] [id number] 5629103OJ- [place], [address], [place] tel:[phone] [facility] Adjustment disorder with mixed anxiety and depressed mood 7 Kash Cao. [address] [place], [address], [place]. tel:[phone] Referring Provider: Nash Hewitt, [address] [place], [address]. tel:[phone] [facility], [id number] 3979014ZRLith[place], [place], [address], [place] tel:[phone] Family Medicine Supervision of other high risk pregnancies, first trimester Jose R Lozano. [address], [place], [address], [place]. tel:[phone] Referring Provider: Marta Odell, [address] [place], [address] . tel:[phone] [facility], [address] [id number] 7189316MZ[place], [place], [address], [place] tel:[phone] Family Medicine Encntr for suprvsn of normal first , unsp trimester 7 Jose R Lozano. [address], [place], [address], [place]. tel:[phone] Referring Provider: Marta Odell, [address] [place], [address] . tel:[phone] OFFICE/OUTPA TIENT VISIT, [facility], [id number] [id number], [place], [address], [place] tel:[phone] [facility] F1 (chief complaint) Suprvsn of preg w history of ectopic or molar preg, unsp triSupervisio n of high risk , unsp, unsp trimesterEncn tr for forest pathology professor exam (general) (routine) w/o abn findingsSuper vision of other high risk , first trimesterDrug use complicating , first trimester Jose R Lozano. [address], [place], [address], [place]. tel:[phone] Referring Provider: Marta Odell, [address] [place], [address] . tel:[phone] [facility], [id number] 7595883BXLithia, [place], [address], [place] tel:[phone] Family Medicine F1 Supervision of other high risk pregnancies, first trimester Jose R Lozano. [address] [place], [place], [address], [place]. tel:[phone] Referring Provider: Marta Odell, [address] [place], [address] . tel:[phone] [facility], [id number] 2719157RTLithia, [place], [address], [place] tel:[phone] [facility] F1 No Information Jose R Lozano. [address], [place], [address], [place]. tel:[phone] Referring Provider: Marta Odell, [address] [place], [address] . tel:[phone] [facility], [id number] 6514558SJL[place], [place], [address], [place] tel:[phone] Family Medicine F1 Amenorrhea, unspecified No Information [facility], [id number], [place], [address], [place] tel:[phone] Family Medicine F1 No Information 0 9 7 No Information Office/Outpa tient Visit, Est [facility], [id number], [place], [place], [address], [place] tel:[phone] Family Medicine F1 No Information 4 9 No Information [facility], [address] [id number] 2163196RHMer[facility], [place], [place], [address], [place] tel:[phone] Family Medicine F1 No Information 0 4 9 No Information EST-EXP PROB FOC/LOW COMPLEXITY [facility], [address] [id number] 0754631NIOttawa [facility], [place], [place], [address], [place] tel:[phone] Family Medicine F1 No Information 0 8 No Information EST-EXP PROB FOC/LOW COMPLEXITY [facility], [id number] 6305391XZL[place], [place], [address], [place] tel:[phone] Family Medicine F1 No Information 3 8 No Information EST-EXP PROB FOC/LOW [facility], [address] [id number] [facility], [place], [place], [address], [place] tel:[phone] Family Medicine F1 No Information Aug-2 3-200 8 No Information NEW-COMPR/MO D [facility], [id number] 2886856YNLith[place], [place], [address], [place] tel:[phone] Family Medicine F1 No Information 9 8 No Information As per patient privacy policy some of the clinical information may not be visible. Family History Family Member Type Diagnosis Age At Onset Mother Problem (finding) alcoholism Father Problem (finding) hypertension Father Problem (finding) Heart disease Problem (finding) Family history of Brain Aneurysm Problem (finding) Family history of Heart disease Father Problem (finding) Migraines Father Problem (finding) Brain Aneurysm Immunizations Vaccine Date Status Comments Flu Vaccine 3 years and older administered Note: PATIENT TOLERA ABHINAV WELL WHILE IN CLINIC ; Source: New Immunization Record Tdap (7 yrs and older) administered Note: PATIENT TOLERATED WELL WHILE IN CLINIC ; Source: New Immunization Record Payers Payer name Insurance type Covered constitution party ID Og posadas(s) [employer] CI [id number] [facility] Plan CI [id number] Social History Type Description Quantity Date Captured Comments Alcohol Use Details Unknown Caffeine Use Details Unknown Tobacco Use Status Smoking Status No Information Sex Female Sexual Orientation Heterosexual Gender Identity Female Chief Complaint And Reason For Visit No Information Reason For Referral Reason For Referral No Information Plan Of Treatment Date Type Action Status Goal Tobacco cessation counseling completed Goal Tobacco cessation counseling completed Goal Tobacco cessation counseling completed Goal Tobacco cessation counseling completed Goal Tobacco cessation counseling completed Future Order: Radiology Order OB US >= 14 Wks, Single Fetus ([id number]), Ordered on: Ordered Future Order: Lab Order Preg. Ur ine Qual ([id number]), Sent on: Sent Future Order: Lab Order PAP, IG, With Reflex to HPV (Aptima) When ASC-U (Ages 21-29) ([id number]), Sent on: Sent History Of Present Illness Encounter Date Complaint History Of Prese nt Illness routine 20wk ISHAN, see P ND routine 13w ISHAN, see PN D routine NOB, unsure LMP . Reports nausea MT TREVON -Current Suboxon e dosage? Out of medications. She relapsed. And is now . Took home test. -Withdrawals or cravings?: not on medications-Any other opioid use since last visit? no -Any other drug use at all since last visit? meth-UDS result from last visit available? yes, 04/14/2021-Any specific concerns today?. pt is Rash The client prese nts for Rash. The patient describes the affected area(s) as dry and itchy. Associated symptoms include dry skin and pruritus. Additional information: Psoriasis to hands. Rash is worse on hands, Rash is itchy. MT - TREVON / New Pt presents for MARBLEIZER MT-TREVON patient. Referral from Chad was on Subutex- started during . Then she had the baby. Went [facility]. Wasn't on medications. Since she was out of [facility]- she has not been on medication. Drug of choice: HeroinAge of first use: 24 years oldLast use: Last Heroin use was 2016What is last drug used: +THCWhen was last use: 2016How much was used: DelmyPt has been buying Subutex 8 mg, taking 1 1/2 tabs a day. Still has cravings daily. Longest period clean? 9 monthsAny withdrawal today? NoAny visits to Rehab? When she was heroin: yes, pastmethamphetamine: yes, pastmarijuana: Yes, dailycocaine: denieshallucinogens: deniesalcohol: deniessmokes: 1 ppdHepatitis: negativePMH: Tubular pregnancyPSH: C- SectionMental/psychiatric: AnxietyPertinent Family Hx: AlcoholismGoals of treatment: Stay off of other opiates. SUB Lapses: denies a ny lapses at this point. Did discuss her last appointment and pos UDS. She does confirm that she was positive. Taking 2 doses daily with no reported cravings. How is work going? 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 How is home going? goodAny concerns Today? none- ran out of medication today SUB Lapses: noneTaki ng 2 doses daily with no reported cravings. How is work going? stay at home motherHow is home going? goodAny concerns Today? Discussed possibly tapering. sub abuse OK on two 8mg bu prenorphine. check Additional Info rmation: Patient showed up for PP visit 17wks after delivery and did not stay to leave a urine so visit was not completed. Follow Up of substance abuse del ivered same day as last visit. OK on current Follow Up of OB substance abuse Doing OK on current buprenorphine... two a day 8mg routine Patient 27 yo 3 9w1d here for ISHAN. No concerns. Discussed CS with patient, she is nervous but ready routine Patient is a 27 yo at 38w1d here for ISHAN. No concerns. No LoF, VB, ctx. normal FM routine See flowsheet routine Patient is a 27 yo at 36w1d here for ISHAN. No concerns. No LoF, VB, ctx. normal FM routine Patient is a 27 yo at 34w1d here for ISHAN. No concerns. No LoF, VB, ctx. normal FM Follow Up of OB substance abuse doing OK on current dose of 2 a day 8mg. routine Patient is a 27 yo at 32w1d by L/8wk US here ISHAN. No concerns. No ctx, LoF, VB. Normal FM. No issues with bupe routine See flowsheet routine Patient is a 27 yo at 28w1d by L/8wk US here ISHAN. No concerns other than heartburn over the past couple of days. No ctx, LoF, VB. Normal FM routine Patient is a 27 yo at 25w1d by L/8wk US here ISHAN. Hasn't seen seen since 13wks. No LoF, VB, ctx. normal FM. On buprenorphine 8mg BID. Doing well. Follow Up of substance abuse doi lisandra ponce on current dose of bupe... going to OB followup regularly. Follow Up of OB substance abuse Pt states she was '[facility] since last visit; finished 2 wks ago. Did not come in for followup visit in late June and was not aware of refill; so has not had bupe for 2 wks. wants to continue it. Follow Up of OB substance abuse 'doing fine on current dose of bupe'. MARBLEIZER substance abuse , ROSALINA late Nov. Had one prev pg, ended in tubal with emergency surgery in 2011...usually uses snorted or smoked heroin [never injected] .2 grams per day. started heroin 1 year ago. started pain pill abuse approx 4 years ago; never had Rx for a medical condition. marijuana: current usemethamphetamine: current; variable amounts recently but started 9 years ago; was clean from meth for 3 years, relapsed < 1 month ago.cocaine: denies usehallucinogens: denies use.alcohol: never a problem; last drink > 1 yr ago. Family h/o alcoholismsmokes 1/2 ppd. information about co-addiction given.has taken Suboxone, purchased illegally, in the pastPMH: good gen'l health.PSH: see above; o/w neg.Mental/psych: neg. routine Went to [facility] two days ago for vomiting and diarrhea. Was in [facility] and didn't pickle cutter prescriptions. LMP was 03/06/20 17. The patient had 1 previous . Additional information: Patient is a 27 yo at 10w1d by L/8wk US here NOB. Reports having nausea issues, plans to take unisom/reglan. Reports bleeding 2 weeks ago which has since resolved.. Functional Status Date Functional Assessmen t No Information Instructions Date Instruction Additional Infor mation SAB precautionsRTC 4 weeks Relat ed to Supervision of other high risk pregnancies, second trimester SAB precautionsRTC 4 weeks Relat ed to Supervision of other high risk pregnancies, second trimester PNL labs drawnGeneti c counselingPNV script givenUS scheduledFollow up in 4 weeks. Related to Supervision of other high risk pregnancies, second trimester Positive t est today. Will get her in to [facility].[place] was acting as the scribe for this visit. The scribe's documentation has been prepared under my direction and personally reviewed by me. I confirm that the note above accurately reflects all work, treatment, procedures, counseling and medical decision making performed by me. 05/27/2021 @ 11:50. Related to , unspecified gestational age Lab work ordered bernard goldstein UPT, confirmed by UPT. Related to Amenorrhea Weight control education Related to Amenorrhea Prescribed topical s teroid cream and discussed medication and side effects.[place] was acting as the scribe for this visit. The scribe's documentation has been prepared under my direction and personally reviewed by me. I confirm that the note above accurately reflects all work, treatment, procedures, counseling and medical decision making performed by me. 04/14/2021 @14:30. Related to Psoriasis BreechCS tomorrowRT PP 2 weeks Related to Supervision of other high risk pregnancies, third trimester Dated by L/8wk US. O +/I/-/-, NRGC/CT trich pos, Rx 05/22. Pap ASCUS +HRHPV. Needs rpt PP. Genetics- missed apptss/p Flu/Tdap 09/19, GCT 102, GBS pos- abx in labor, Br/BC- depoLabor precautionsRTC 1 week Related to Supervision of other high risk pregnancies, third trimester Dated by L/8wk US. O +/I/-/-, NRGC/CT trich pos, Rx 05/22. Pap ASCUS +HRHPV. Needs rpt PP. Genetics- missed apptss/p Flu/Tdap 09/19, GCT 102, GBS at 36wk, Br/BC- depoPTL precautionsRTC 1 week Related to Supervision of other high risk pregnancies, third trimester Dated by L/8wk US. O +/I/-/-, NRGC/CT trich pos, Rx 05/22. Pap ASCUS +HRHPV. Needs rpt PP. Genetics- missed apptss/p Flu/Tdap 09/19, GCT 102, GBS at 36wk, Br/BC- depoPTL precautionsRTC 2 weeks Related to Supervision of other high risk pregnancies, third trimester Dated by L/8wk US. O +/I/-/-, NRGC/CT trich pos, Rx 05/22. Pap ASCUS +HRHPV. Needs rpt PP. Genetics- missed apptss/p Flu/Tdap 09/19, GCT 102, GBS at 36wk, Br v pablo/BC?PTL precautionsRTC 2 weeks Related to Supervision of other high risk pregnancies, third trimester 1. Continue care2. S ee PND3. RTC in 2 weeks Related to Supervision of high risk , unsp, unsp trimester Dated by L/8wk USO+/ I/-/-, NRGC/CT trich pos, Rx 05/22. Pap ASCUS +HRHPV. Needs rpt PPGenetics- missed apptsFlu/Tdap due this fallGCT at 28wkGBS at 36wkBr v pablo/BC?PTL precautionsRTC 2 weeks Related to Supervision of high risk , 2nd trimester Dated by L/8wk USO+/ I/-/-, NRGC/CT trich pos, Rx 05/22. Pap ASCUS +HRHPV. Needs rpt PPGenetics- missed apptsFlu/Tdap due this fallGCT at 28wkGBS at 36wkBr v pablo/BC?PTL precautionsRTC 3 weeks Related to Supervision of high risk , 2nd trimester 1. Continue care2. S ee PND3. RTC in 4 weeks4. Patient counseled on needing colpo due to ASCUS pap with +HPV Related to Supervision of high risk , unsp, unsp trimester Dated by L/8wk USPNL pendGC/CT and pap pendGenetics- desires NT, will scheduleFlu/Tdap due this fallGCT at 28wkGBS at 36wkBr v pablo/BC?SAb precautionsRTC 4 weeks Related to Supervision of other high risk , first trimester As per patient privacy policy some of the clinical information may not be visible. Assessments Type Assessment Date No Information Patient Care Teams Name Effective Dates (start - stop) Status Members No Information
[2025-05-05 20:17] VITALS: BP 124/76; PULSE 84; RESP 18; TEMP 36.7; O2SAT 98; BMI 26.8
--- NOTE | 2025-05-05 20:57 | ED_ITS ---
HPI - Dental/Oral 2 General: Chief complaint: Dental/Oral Stated complaint: Tooth Ache Time Seen by Provider: 05/05/25 20:10 History of Present Illness: Proximately 3 hours ago patient was eating a chip, and her tooth broke off on the bottom right first molar. She has severe pain. No fevers. She is able to fully open her mouth. Associated symptoms: Denies fever(s) or odynophagia Related Data Previous Rx's ?Medication ?Instructions ?Recorded buprenorphine 8 mg-naloxone 2 mg 1.5 tab sublingual DA STUART #45 tabs 03/26/25 sublingual tablet buspirone 10 mg tablet 10 mg PO BID #60 tabs fluoxetine 40 mg capsule (Prozac) 40 mg PO DAILY #30 c aps 03/26/25 trazodone 50 mg tablet 100 mg (2 x 50 mg) PO .HS HI N 03/26/25 insomnia #60 tabs amoxicillin 500 mg capsule 500 mg PO BID 10 days #20 c aps 05/05/25 Allergies Allergy/AdvReac Type Severity Reaction Status Date / Time No Known Allergies Allergy Verified 03/26/25 14:43 Review of Systems 2 Const: Denies: fever(s) or chills Eyes: Denies: change in vision or blurry vision ENMT: Reports: dental pain; Denies: throat pain, odynophagia, mouth pain, swelling of lips/tongue, bleeding gums, change in hearing or disequilibrium Card: Denies: chest pain or palpitations Resp: Denies: dyspnea or productive cough GI: Denies: abdominal pain, nausea or vomiting : Denies: flank pain or difficulty voiding Musc: Denies: neck pain or back pain Skin/Breast: Denies: rash or pruritus Neuro: Denies: headache(s) or numbness in extremities Psych: Denies: anxiety or depression PFSH ED 2 PFSH: Medical History Psychiatric care Social History Smoking and tobacco/nicotine status: current every day tobacco/nicotine user Physical Exam 2 Const: COMMON NORMALS: no acute distress, average body habitus and patient oriented x3 HENMT: COMMON NORMALS: normocephalic, atraumatic, TM's normal bilaterally, moist oral mucous membranes and oropharynx normal HEAD & SCALP: normocephalic and atraumatic TYMPANIC MEMBRANE: TM's normal bilaterally MOUTH: lip normal and tongue normal; no trismus and no restricted motion TEETH & GINGIVA IMAGES: 1. fractured at root Lymph: LYMPHATIC: no lymphadenopathy noted Chest: COMMONS NORMALS: normal inspection of the chest Resp: COMMON NORMALS: normal respiratory effort and No retractions Cardio: COMMON NORMALS: regular rate and regular rhythm RATE: regular rate RHYTHM: regular rhythm GI: COMMON NORMALS: Normal to inspection, nondistended, normoactive bowel sounds present and Soft to palpation PALPATION: Yes Soft to palpation : COMMON NORMALS: Yes no CVA tenderness BLADDER/KIDNEY EXAM: Yes no CVA tenderness Back/Pelvis: COMMON NORMALS: no CVA tenderness Extremity: COMMON NORMALS: normal to inspection and full ROM Neuro: COMMON NORMALS: patient oriented x3 and CN's II-XII intact bilaterally Psych: COMMON NORMALS: mental status grossly normal and Normal thought process present THOUGHT PROCESS: Normal thought process present Skin: COMMON NORMALS: no rashes or lesions noted and no wounds GENERAL SKIN EXAM: no rashes or lesions noted Course 2 Vital Signs: Vital signs: Vital Signs Temperature 98.1 F 05/05/25 20:17 Pulse Rate 79 05/05/25 21:27 Respiratory Rate 17 05/05/25 21:27 Blood Pressure 129/79 05/05/25 21:27 Pulse Oximetry 97 05/05/25 21:27 Oxygen Delivery Me thod Room Air 05/05/25 20:17 MDM - Dental/Oral Medical Decision Making 35-year-old female with fractured tooth and pain. Will treat with antibiotics. Discussed with patient to utilize naproxen with Tylenol or ibuprofen. No radiology studies performed this visit Discharge Plan Discharge Patient Disposition: Home Clinical Impression: Fracture of tooth Qualifiers: Encounter type: initial encounter Fracture type: open Qualified Code(s): S 02.5XXB - Fracture of tooth (traumatic), initial encounter for open fracture Condition: Stable Prescriptions: New amoxicillin 500 mg capsule 500 mg PO BID 10 Days Qty: 20 0RF No Action fluoxetine [Prozac] 40 mg capsule 40 mg PO DAILY Qty: 30 11RF buspirone 10 mg tablet 10 mg PO BID Qty: 60 11RF buprenorphine-naloxone 8-2 mg tablet, sublingual 1.5 tab sublingual DAILY Qty: 45 2RF trazodone 50 mg tablet 100 mg PO .HS PRN (Reason: insomnia) Qty: 60 11RF Discharge Orders: Discharge ED (Routine); Ordered 05/05/25 Ordered By: Adrienne Bruner Discharge Diet: Soft Mechanical Discharge Activity: Resume usual activity Patient Instructions: Acute Dental Trauma (ED), Patient Portal & David Instructions Activity Restrictions/Additional Instructions: Follow-up with the dentist. We are unable to do dentistry out of the ED. Take antibiotics as directed. Utilize a probiotic daily or active culture yogurt. Naproxen with Tylenol or ibuprofen for pain Keep area dry and cover if possible to help with pain. 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
[2025-05-05] MEDS: HYDROcodone-acetaminophen 10-325 mg Tablet 1 TAB PO (21:04)
[2025-05-05] MEDS: amoxicillin 500 mg Capsule 1000 MG PO (21:04)
[2025-05-05 21:27] VITALS: BP 129/79; PULSE 79; RESP 17; O2SAT 97
== END 2025-05-05 21:28 | disposition home or self-care (01) ==
PROVIDERS: Emergency Provider Physician Assistant
DX: S02.5XXB Fracture of tooth (traumatic), initial encounter for open fracture (principal); X58.XXXA Exposure to other specified factors, initial encounter; Z72.0 Tobacco use
CPT/HCPCS: 99283; J9999

== ENCOUNTER → 2025-06-25 16:24 | Outpatient (BNVA) | payer BC, MEDICAID, SELFPAY | PROVIDERS: Visit Provider Psychiatry & Neurology Psychiatry | DX: F11.21 Opioid dependence, in remission (principal); Z79.899 Other long term (current) drug therapy | CPT/HCPCS: 80307 ==

== ENCOUNTER → 2025-09-16 15:55 | Outpatient (BNVA) | payer BC, MEDICAID, SELFPAY | PROVIDERS: Visit Provider Psychiatry & Neurology Psychiatry | DX: F11.21 Opioid dependence, in remission (principal); F33.2 Major depressive disorder, recurrent severe without psychotic features; Z79.899 Other long term (current) drug therapy | CPT/HCPCS: 80307 ==